=== PATIENT | male | born 1955 | race African-American/Black ===

== ENCOUNTER 2018-02-26 13:56 | Emergency (ER) | payer OTHER ==
--- NOTE | 2018-02-26 15:59 | RAD ---
FOUR VIEWS LEFT KNEE: DATE: 02/26/2018. HISTORY: Left knee pain and swelling. FINDINGS: There is tricompartment osteophytosis. No fracture or dislocation is seen. There is a large suprapa tellar joint effusion present. Subcutaneous soft tissue swelling is seen about the medial anterior a spect of the knee. Vascular calcifications are seen posterior to the knee. There is mild narrowing of the medial joint compartment compared to the lateral joint compartment. IMPRESSION: 1. Osteoarthritis without an acute osseous abnormality. 2. Large suprapatellar joint effusion. If there is concern for internal derangement, MRI can be per formed. POS: [facility]
== END 2018-02-26 15:16 | disposition home or self-care (01) ==
LOC: ERS 13:56
DX: M17.12 Unilateral primary osteoarthritis, left knee (principal); F17.200 Nicotine dependence, unspecified, uncomplicated; I10 Essential (primary) hypertension

== ENCOUNTER 2018-11-15 13:01 | Emergency (ER) | payer OTHER ==
--- NOTE | 2018-11-15 13:33 | RAD ---
XR Ankle Rt 3 View STANDARD HISTORY: Right ankle edema FINDINGS: No fracture or dislocation is identified. The ankle mortise is maintained. Soft tissue swelling is pr esent.
--- NOTE | 2018-11-15 13:35 | RAD ---
XR Foot Rt 3 View STANDARD HISTORY: Right foot and ankle edema FINDINGS: No fracture or dislocation is identified. No bony destruction or periosteal reaction is seen.
== END 2018-11-15 14:14 | disposition home or self-care (01) ==
LOC: ERS 13:01
DX: M79.89 Other specified soft tissue disorders (principal); I10 Essential (primary) hypertension; F17.200 Nicotine dependence, unspecified, uncomplicated

== ENCOUNTER 2019-04-13 08:31 | Outpatient (CLI) | payer OTHER ==
[2019-04-13 09:44] LABS: Estimated GFR-MDRD - POC Greater than 90
--- NOTE | 2019-04-13 11:04 | CT ---
CT ABDOMEN ONLY WITHOUT AND WITH CONTRAST: Date: 04/13/2019 HISTORY: Abdominal pain. Knots appearing on the hands, elbows, and ankles, with possible rheumatoid arthritis. TECHNIQUE: Multiple contiguous axial images were obtained in a CT of the abdomen only without and with IV contra st. Oral contrast was administered. Sagittal and coronal reformats were performed. FINDINGS: There are subcentimeter hypodensities in the kidneys that are too small to definitely characterize, b ut likely represent cysts. The liver, gallbladder, adrenal glands, spleen, and pancreas are unremarka ble. No free air, free fluid, or stranding changes are seen in the abdomen. The visualized large and small bowel are unremarkable. The visualized portions of the appendix are un remarkable. Atherosclerotic calcifications are seen in the aorta. No abdominal adenopathy is seen. Degenerative changes are seen in the lumbar spine. The abdominal wall soft tissues are unremarkable. Please see dedicated chest CT for findings above the diaphragm. IMPRESSION: 1. No evidence of acute intra-abdominal/pelvic abnormality. 2. Bilateral renal cysts. POS: [facility]
--- NOTE | 2019-04-13 11:31 | CT ---
CT OF THE CHEST WITHOUT CONTRAST: COMPARISON: None. HISTORY: Low-dose cancer screening protocol. Family history of cancer. The patient has a 40-year smoking his tory. Nicotine dependence. TECHNIQUE: Multiple contiguous axial images were obtained in a CT of the chest without contrast. Sagittal and c oronal reformats were performed. FINDINGS: There are scattered opacities in the lungs. This is most prominent in the right middle lobe and is a lso seen in the right lower lobe. There is an area of cavitation in the right lower lobe measuring 1 .8 cm in size. Bronchiectasis is seen in scattered throughout the lungs. No discrete pulmonary nodu le is seen separate from these areas of possible scarring or infectious process. No pneumothorax or pleural effusion are seen. The heart is normal in size. Calcifications are seen in the coronary arteries and aorta. No hilar o r mediastinal lymphadenopathy are appreciated on this limited noncontrast examination. Please see dedicated abdominal CT for findings below the diaphragm. The chest wall soft tissues are unremarkable. Degenerative changes are seen in the spine. IMPRESSION: There are scattered areas of opacity in the lungs. This could represent chronic scarring from a prio r infectious process. An acute infectious process could not be excluded. Correlate with white blood cell count. A CT of the chest with contrast may be necessary for better characterization and to exc lude right hilar mass/lymphadenopathy. Lung RADS category 2S. A followup CT chest with contrast is recommended to evaluate the scattered op acities in the lungs which may represent an infectious process. POS: [facility]
[2019-04-13] MEDS ORDERED: Iopamidol 370 76% 100 ML VIAL ONE (16:24)
== END 2019-04-13 08:32 | disposition home or self-care (01) ==
LOC: CT 08:31
PROVIDERS: ATTEND Family Medicine
DX: R10.9 Unspecified abdominal pain (principal); N28.1 Cyst of kidney, acquired
CPT/HCPCS: 74170; 82565; G0297; Q9967

== ENCOUNTER 2019-04-24 08:36 | Outpatient (CLI) | payer OTHER ==
--- NOTE | 2019-04-24 09:21 | CT ---
EXAM: CT of the chest with contrast HISTORY: Abnormality seen on prior chest CT COMPARISON: 04/13/2019 TECHNIQUE: Multiple contiguous axial images were obtained in a CT the chest with contrast. Coronal an d sagittal reformats were performed. FINDINGS: HEART: Normal in size without focal cardiac abnormality MEDIASTINUM: There is a prominent 2.5 cm right hilar lymph node. Slightly prominent pretracheal lymph nodes are seen. LUNGS: Scattered opacities are again seen in the lungs. When compared to the prior exam, these have s lightly improved. These are greatest in the right middle lobe and right lower lobe. No suspicious pulmonary nodules are appreciated. PLEURAL SPACE: No pneumothorax or pleural effusion. CHEST WALL SOFT TISSUES: Unremarkable OSSEOUS STRUCTURES: Degenerative changes in the spine. VISUALIZED SUBDIAPHRAGMATIC STRUCTURES: Unremarkable IMPRESSION: Scattered opacities in the lungs appear to be slightly improving and may represent an ongoing infecti ous process. Recommend continued follow-up CT after treatment to ensure resolution.
== END 2019-04-24 08:37 | disposition home or self-care (01) ==
LOC: SCSCT 08:36
PROVIDERS: ATTEND Family Medicine
DX: R91.8 Other nonspecific abnormal finding of lung field (principal)
CPT/HCPCS: 71260